=== PATIENT | female | born 1985 | race Caucasian/White ===

== ENCOUNTER 2017-10-28 18:12 | Emergency (ER) | payer SELFPAY, OTHER ==
[2017-10-28 19:18] LABS: BASO % 0.3 % (0.0-1.0); EOS # 1.2 10^3/uL (0.0-0.50); EOS % 7.6 % (0.0-3.0); HEMATOCRIT 35.6 % (36.0-47.0); IMMATURE GRANULOCYTE % 0.3 % (0-3.0); LYMPH # 1.2 10^3/uL (1.5-4.5); LYMPH % 7.8 % (24.0-44.0); MEAN CORPUSCULAR HEMOGLOBIN 29.7 pg (27.0-33.0); MEAN CORPUSCULAR HGB CONC 33.7 g/dl (32.0-36.5); MEAN CORPUSCULAR VOLUME 88.1 fl (80.0-96.0); MONO # 0.9 10^3/uL (0.0-0.8); MONO % 5.8 % (0.0-5.0); NEUTROPHILS # 12.5 10^3/uL (1.8-7.7); NEUTROPHILS % 78.2 % (36.0-66.0); PLATELET COUNT, AUTOMATED 373 10^3/uL (150-450); RED BLOOD COUNT 4.04 10^6/uL (4.00-5.40); RED CELL DISTRIBUTION WIDTH 13.2 % (11.5-14.5)
[2017-10-28] MEDS: ONDANSETRON 4MG/2ML VIAL (J2405) IV (19:21)
[2017-10-28] MEDS: NS 1,000 ML IV (19:21)
[2017-10-28] MEDS: MORPHINE 2 MG/ML 1ML SYRINGE (J2270) IV (19:21)
[2017-10-28 19:39] LABS: ANION GAP 11 MEQ/L (8-16); BLOOD UREA NITROGEN 12 MG/DL (7-18); CALCIUM LEVEL 8.8 MG/DL (8.5-10.1); CARBON DIOXIDE LEVEL 24 MEQ/L (21-32); CHLORIDE LEVEL 100 MEQ/L (98-107); CREATININE FOR GFR 0.85 MG/DL (0.55-1.30); GLOMERULAR FILTRATION RATE > 60.0 (>60); GLUCOSE, FASTING 92 MG/DL (70-100); POTASSIUM SERUM 3.7 MEQ/L (3.5-5.1); SODIUM LEVEL 135 MEQ/L (136-145)
[2017-10-28 19:43] LABS: LACTIC ACID SEPSIS PROTOCOL 0.6 MMOL/L (0.4-2.0)
[2017-10-28 20:10] LABS: ERYTHROCYTE SEDIMENTATION RATE 73 mm/hr (0-20)
[2017-10-28] MEDS: CLINDAMYCIN 600 MG in APPROPRIATE DILUENT 1 EA IV (20:36)
[2017-10-28] MEDS: CLINDAMYCIN 150 MG CAP PO (21:30)
== END 2017-10-28 21:46 | disposition home or self-care (01) ==
LOC: M ED 18:12
DX: L03.116 Cellulitis of left lower limb (principal); F32.9 Major depressive disorder, single episode, unspecified; Z72.0 Tobacco use
CPT/HCPCS: J2405

== ENCOUNTER 2017-10-29 18:24 | Emergency (ER) | payer SELFPAY ==
[2017-10-29] MEDS: KETOROLAC 30 MG/ML VIAL (J1885) IV (18:34)
[2017-10-29] MEDS: CLINDAMYCIN 900 MG in APPROPRIATE DILUENT 1 EA IV (18:34)
[2017-10-29] MEDS: NORCO, ANEXSIA 5/325MG TABLET (HYDROcodone/ACETAMINOPHEN) PO (18:35)
[2017-10-29 18:53] LABS: BASO % 0.3 % (0.0-1.0); EOS # 0.9 10^3/uL (0.0-0.50); EOS % 7.5 % (0.0-3.0); HEMATOCRIT 33.8 % (36.0-47.0); HEMOGLOBIN 11.3 g/dl (12.0-15.5); IMMATURE GRANULOCYTE % 0.3 % (0-3.0); LYMPH # 1.1 10^3/uL (1.5-4.5); MEAN CORPUSCULAR HEMOGLOBIN 30.5 pg (27.0-33.0); MEAN CORPUSCULAR HGB CONC 33.4 g/dl (32.0-36.5); MEAN CORPUSCULAR VOLUME 91.1 fl (80.0-96.0); MONO # 0.6 10^3/uL (0.0-0.8); NEUTROPHILS # 9.3 10^3/uL (1.8-7.7); NEUTROPHILS % 77.9 % (36.0-66.0); PLATELET COUNT, AUTOMATED 339 10^3/uL (150-450); RED BLOOD COUNT 3.71 10^6/uL (4.00-5.40); RED CELL DISTRIBUTION WIDTH 13.2 % (11.5-14.5); WHITE BLOOD COUNT 11.9 10^3/uL (4.0-10.0)
[2017-10-29 19:22] LABS: ERYTHROCYTE SEDIMENTATION RATE 84 mm/hr (0-20)
[2017-10-29 19:25] LABS: ANION GAP 10 MEQ/L (8-16); BLOOD UREA NITROGEN 10 MG/DL (7-18); CALCIUM LEVEL 8.8 MG/DL (8.5-10.1); CARBON DIOXIDE LEVEL 25 MEQ/L (21-32); CHLORIDE LEVEL 103 MEQ/L (98-107); CREATININE FOR GFR 0.89 MG/DL (0.55-1.30); GLOMERULAR FILTRATION RATE > 60.0 (>60); GLUCOSE, FASTING 133 MG/DL (70-100); SODIUM LEVEL 138 MEQ/L (136-145)
== END 2017-10-29 19:53 | disposition home or self-care (01) ==
LOC: M ED 18:24
DX: L03.116 Cellulitis of left lower limb (principal); F32.9 Major depressive disorder, single episode, unspecified; F17.200 Nicotine dependence, unspecified, uncomplicated; Z79.2 Long term (current) use of antibiotics
CPT/HCPCS: J1885

== ENCOUNTER 2018-02-08 16:13 | Emergency (ER) | payer SELFPAY ==
[2018-02-08 16:55] LABS: BASO % 0.5 % (0.0-1.0); EOS # 0.1 10^3/uL (0.0-0.50); EOS % 1.1 % (0.0-3.0); HEMATOCRIT 34.4 % (36.0-47.0); HEMOGLOBIN 11.4 g/dl (12.0-15.5); IMMATURE GRANULOCYTE % 1.4 % (0-3.0); LYMPH # 1.9 10^3/uL (1.5-4.5); LYMPH % 26.2 % (24.0-44.0); MEAN CORPUSCULAR HEMOGLOBIN 29.8 pg (27.0-33.0); MEAN CORPUSCULAR HGB CONC 33.1 g/dl (32.0-36.5); MEAN CORPUSCULAR VOLUME 89.8 fl (80.0-96.0); MONO # 0.4 10^3/uL (0.0-0.8); MONO % 5.3 % (0.0-5.0); NEUTROPHILS # 4.8 10^3/uL (1.8-7.7); NEUTROPHILS % 65.5 % (36.0-66.0); PLATELET COUNT, AUTOMATED 407 10^3/uL (150-450); RED BLOOD COUNT 3.83 10^6/uL (4.00-5.40); RED CELL DISTRIBUTION WIDTH 13.8 % (11.5-14.5); WHITE BLOOD COUNT 7.3 10^3/uL (4.0-10.0)
[2018-02-08 17:04] LABS: CONTROL LINE HCG INT CTR LINE PRESENT; HCG, SERUM QUALITATIVE NEGATIVE (NEGATIVE)
[2018-02-08 17:19] LABS: ACETAMINOPHEN LEVEL < 2.0 UG/ML (10.0-30.0); ALBUMIN 2.9 GM/DL (3.2-5.2); ALBUMIN/GLOBULIN RATIO 0.76 (1.00-1.93); ALKALINE PHOSPHATASE 70 U/L (45-117); ALT/SGPT 43 U/L (12-78); ANION GAP 6 MEQ/L (8-16); AST/SGOT 30 U/L (7-37); BILIRUBIN,DIRECT < 0.1 MG/DL (0.0-0.2); BILIRUBIN,TOTAL 0.3 MG/DL (0.2-1.0); BLOOD UREA NITROGEN 13 MG/DL (7-18); CARBON DIOXIDE LEVEL 29 MEQ/L (21-32); CHLORIDE LEVEL 110 MEQ/L (98-107); CPK CREATINE PHOSPHOKINASE 76 U/L (26-192); CREATININE FOR GFR 0.81 MG/DL (0.55-1.30); ETHYL ALCOHOL (ETHANOL) < 0.003 % (0.000-0.010); GLOMERULAR FILTRATION RATE > 60.0 (>60); GLUCOSE, FASTING 90 MG/DL (70-100); POTASSIUM SERUM 3.5 MEQ/L (3.5-5.1); SALICYLATE LEVEL < 1.7 MG/DL (5.0-30.0); SODIUM LEVEL 145 MEQ/L (136-145); TOTAL PROTEIN 6.7 GM/DL (6.4-8.2)
== END 2018-02-08 20:33 | disposition home or self-care (01) ==
LOC: M ED 16:13
DX: T40.2X1A Poisoning by other opioids, accidental (unintentional), initial encounter (principal); X58.XXXA Exposure to other specified factors, initial encounter; F11.129 Opioid abuse with intoxication, unspecified
CPT/HCPCS: 71045

== ENCOUNTER → 2018-02-10 | Outpatient (CLI) | payer SELFPAY | LOC: M OUTALCOH 07:48 | DX: Z13.9 Encounter for screening, unspecified (principal); F11.20 Opioid dependence, uncomplicated ==

== ENCOUNTER 2018-02-27 15:09 | Emergency (ER) | payer BC, MEDICAID, SELFPAY ==
[~2018-02-27] VITALS: Ht 160 cm; Wt 61.4 kg
[2018-02-27 15:09] VITALS: BP 135/77
[~2018-02-27 15:09] MED LIST: CLEO300C2 PO; KETO10TAB PO; NORCOTAB PO
[2018-02-27] MEDS ORDERED: APAP325T4 PO (15:14)
[2018-02-27] MEDS ORDERED: VALT1TAB PO (15:51)
[2018-02-27] MEDS ORDERED: NAPR-50 PO (15:51)
[2018-02-27] MEDS ORDERED: AUGM875T28 PO (15:59)
[2018-02-27] MEDS ORDERED: valACYclovir HCL 500 MG TAB PO ONE (16:00)
[2018-02-27] MEDS ORDERED: AUGMENTIN 875 MG TAB PO ONE (16:00)
[2018-02-27] MEDS ORDERED: NAPROXEN 250 MG TAB PO ONE (16:15)
== END 2018-02-27 16:20 | disposition home or self-care (01) ==
LOC: M ED 15:09
DX: J03.90 Acute tonsillitis, unspecified (principal); B00.9 Herpesviral infection, unspecified; F33.9 Major depressive disorder, recurrent, unspecified; F17.210 Nicotine dependence, cigarettes, uncomplicated

== ENCOUNTER → 2018-08-05 | Outpatient (REF) | payer MEDICAID ==
[~2018-08-05] MED LIST changes: +APAP325T4 PO; +AUGM875T28 PO; +HYDR-3715 PO; +NAPR-837 PO; -NORCOTAB PO; +VALT1TAB PO
[2018-08-05 18:27] LABS: APPEARANCE, URINE CLEAR (CLEAR); BACTERIA, URINE AUTO 1+ (NEGATIVE); BILIRUBIN, URINE AUTO NEGATIVE (NEGATIVE); BLOOD, URINE BLOOD 1+ (NEGATIVE); COLOR, URINE YELLOW (YELLOW); GLUCOSE, URINE (UA) AUTO NEGATIVE (NEGATIVE); KETONE, URINE AUTO NEGATIVE (NEGATIVE); LEUKOCYTE ESTERASE, URINE AUTO NEGATIVE (NEGATIVE); MUCUS, URINE SMALL (NEGATIVE); NITRITE, URINE AUTO NEGATIVE (NEGATIVE); PROTEIN, URINE AUTO NEGATIVE (NEGATIVE); RBC, URINE AUTO 1 /HPF (0-3); SPECIFIC GRAVITY URINE AUTO 1.021 (1.002-1.035); SQUAMOUS EPITHELIAL CELL UR AU 1 /HPF (0-6); UROBILINOGEN, URINE AUTO 0.2 mg/dL (0.0-2.0); WBC, URINE AUTO 12 /HPF (0-3)
[2018-08-05 19:29] LABS: BASO % 0.6 % (0.0-1.0); EOS # 0.4 10^3/uL (0.0-0.50); EOS % 5.5 % (0.0-3.0); HEMATOCRIT 38.3 % (36.0-47.0); HEMOGLOBIN 12.3 g/dl (12.0-15.5); LYMPH # 2.2 10^3/uL (1.5-4.5); MEAN CORPUSCULAR HEMOGLOBIN 29.1 pg (27.0-33.0); MEAN CORPUSCULAR HGB CONC 32.1 g/dl (32.0-36.5); MEAN CORPUSCULAR VOLUME 90.5 fl (80.0-96.0); MONO # 0.5 10^3/uL (0.0-0.8); MONO % 7.5 % (0.0-5.0); NEUTROPHILS # 3.9 10^3/uL (1.8-7.7); NEUTROPHILS % 55.1 % (36.0-66.0); PLATELET COUNT, AUTOMATED 403 10^3/uL (150-450); RED BLOOD COUNT 4.23 10^6/uL (4.00-5.40)
[2018-08-05 20:16] LABS: ALBUMIN 3.6 GM/DL (3.2-5.2); ALT/SGPT 28 U/L (12-78); BILIRUBIN,TOTAL 0.3 MG/DL (0.2-1.0); BLOOD UREA NITROGEN 14 MG/DL (7-18); CALCIUM LEVEL 8.6 MG/DL (8.5-10.1); CARBON DIOXIDE LEVEL 27 MEQ/L (21-32); CHLORIDE LEVEL 106 MEQ/L (98-107); CHOLESTEROL LEVEL 128 MG/DL (<200); CHOLESTEROL RISK RATIO 3.878 (<5); CREATININE FOR GFR 0.83 MG/DL (0.55-1.30); FREE T4 0.93 NG/DL (0.76-1.46); GLOMERULAR FILTRATION RATE > 60.0 (>60); GLUCOSE, FASTING 96 MG/DL (70-100); HDL CHOLESTEROL 33 MG/DL (>40); LDL CHOLESTEROL 47 MG/DL (<100); NON-HDL-C 95 MG/DL; POTASSIUM SERUM 4.1 MEQ/L (3.5-5.1); SODIUM LEVEL 139 MEQ/L (136-145); TOTAL PROTEIN 7.4 GM/DL (6.4-8.2); TRIGLYCERIDES LEVEL 241 MG/DL (<150)
[2018-08-05 20:20] LABS: TOTAL 25(OH) VITAMIN D 15.7 NG/ML (30.0-100.0)
[2018-08-05 20:44] LABS: HEMOGLOBIN A1c 4.8 %
[2018-08-10 00:06] LABS: Lyme Disease IgG Ab 18 kDa Ban Absent (.); Lyme Disease IgG Ab 23 kDa Ban Absent (.); Lyme Disease IgG Ab 28 kDa Ban Absent (.); Lyme Disease IgG Ab 30 kDa Ban Absent (.); Lyme Disease IgG Ab 39 kDa Ban Absent (.); Lyme Disease IgG Ab 41 kDa Ban Present (.); Lyme Disease IgG Ab 45 kDa Ban Absent (.); Lyme Disease IgG Ab 58 kDa Ban Absent (.); Lyme Disease IgG Ab 66 kDa Ban Absent (.); Lyme Disease IgG Ab 93 kDa Ban Absent (.); Lyme Disease IgG West Blot Int Negative (.); Lyme Disease IgG/IgM Antibodie 1.45 ISR (0.00-0.90); Lyme Disease IgM Ab 23 kDa Ban Present (.); Lyme Disease IgM Ab 39 kDa Ban Present (.); Lyme Disease IgM Ab 41 kDa Ban Absent (.); Lyme Disease IgM Ab Quantitati 1.64 index (0.00-0.79); Lyme Disease IgM West Blot Int Positive (.)
== END ==
LOC: M LAB REF 16:44
PROVIDERS: ATTEND Family Medicine
DX: Z13.228 Encounter for screening for other metabolic disorders (principal)

== ENCOUNTER 2018-10-11 18:11 | Emergency (ER) | payer MEDICAID ==
[~2018-10-11] VITALS: Ht 162.6 cm; Wt 77.3 kg
[2018-10-11] MEDS ORDERED: SUBO8MIS (18:27)
[2018-10-11] MEDS ORDERED: VALA500T5 (18:27)
[2018-10-11] MEDS ORDERED: TRAZ-252 (18:27)
[2018-10-11] MEDS ORDERED: PROAAER10 (18:27)
[2018-10-11] MEDS ORDERED: BUPR150T5 (18:27)
[2018-10-11] MEDS ORDERED: ROBA500T PO (19:56)
[2018-10-11] MEDS ORDERED: LIDOCAINE 5% (LIDODERM) PATCH TD ONE (20:00)
[2018-10-11] MEDS ORDERED: METHOCARBAMOL 750 MG TAB PO ONE (20:00)
[2018-10-11 20:08] VITALS: BP 142/88
[2018-10-12] MEDS ORDERED: **NOTE PATIENT COMMENT** MISC XX SCH (08:00)
== END 2018-10-11 20:09 | disposition home or self-care (01) ==
LOC: M ED 18:11
DX: S39.012A Strain of muscle, fascia and tendon of lower back, initial encounter (principal); X58.XXXA Exposure to other specified factors, initial encounter; Y92.89 Other specified places as the place of occurrence of the external cause; B19.20 Unspecified viral hepatitis C without hepatic coma; Z79.891 Long term (current) use of opiate analgesic

== ENCOUNTER → 2018-10-29 | Outpatient (REF) ==
[~2018-10-29] MED LIST changes: +BUPR150T5; +PROAAER10; +ROBA500T PO; +SUBO8MIS; +TRAZ-252; +VALA500T5
[2018-10-29 11:40] LABS: RUBELLA IgG QUALITATIVE IMMUNE (IMMUNE)
== END ==
LOC: M LAB 10:18
PROVIDERS: ATTEND Nurse Practitioner Adult Health
DX: Z00.00 Encounter for general adult medical examination without abnormal findings (principal)

== ENCOUNTER → 2018-11-08 | Outpatient (REF) | payer MEDICAID ==
[2018-11-10 14:07] LABS: HPV HYBRID CAPTURE II Negative (Negative)
== END ==
LOC: M LAB REF 13:17
PROVIDERS: ATTEND Specialist
DX: Z12.4 Encounter for screening for malignant neoplasm of cervix (principal)

== ENCOUNTER 2018-11-15 08:12 | Emergency (ER) | payer BC, MEDICAID ==
[~2018-11-15] VITALS: Ht 162.6 cm; Wt 91.4 kg
[2018-11-15 08:13] VITALS: BP 117/60
[2018-11-15] MEDS ORDERED: NAPR-837 PO (09:13)
--- NOTE | 2018-11-15 12:03 | REP ---
RIGHT WRIST, FOUR VIEWS: There is no evidence of an acute fracture, dislocation or intrinsic bone disease. A tiny nonspecific soft tissue calcification is seen adjacent to the radial styloid. IMPRESSION: No fracture or dislocation. Electronically Signed by Giovanni Monge MD 11/16/2018 03:38 P
== END 2018-11-15 09:15 | disposition home or self-care (01) ==
LOC: M ED 08:12
DX: G56.01 Carpal tunnel syndrome, right upper limb (principal); F32.9 Major depressive disorder, single episode, unspecified; B19.20 Unspecified viral hepatitis C without hepatic coma; Z72.0 Tobacco use; Z79.899 Other long term (current) drug therapy

== ENCOUNTER → 2020-04-12 | Outpatient (REF) | payer MEDICAID ==
[2020-04-12 17:37] LABS: BASO % 0.4 % (0.0-1.0); EOS # 0.2 10^3/uL (0.0-0.5); HEMATOCRIT 38.8 % (36.0-47.0); HEMOGLOBIN 12.6 g/dl (12.0-15.5); LYMPH % 28.6 % (24.0-44.0); MEAN CORPUSCULAR HEMOGLOBIN 29.6 pg (27.0-33.0); MEAN CORPUSCULAR HGB CONC 32.5 g/dl (32.0-36.5); MEAN CORPUSCULAR VOLUME 91.1 fl (80.0-96.0); MONO # 0.6 10^3/uL (0.0-0.8); MONO % 8.3 % (0.0-5.0); NEUTROPHILS # 4.1 10^3/uL (1.5-8.5); NEUTROPHILS % 59.3 % (36.0-66.0); PLATELET COUNT, AUTOMATED 391 10^3/uL (150-450); RED BLOOD COUNT 4.26 10^6/uL (4.00-5.40)
[2020-04-12 18:04] LABS: ALBUMIN 3.6 GM/DL (3.2-5.2); ALT/SGPT 71 U/L (12-78); BILIRUBIN,TOTAL 0.2 MG/DL (0.2-1.0); BLOOD UREA NITROGEN 15 MG/DL (7-18); CALCIUM LEVEL 8.7 MG/DL (8.5-10.1); CARBON DIOXIDE LEVEL 29 MEQ/L (21-32); CHLORIDE LEVEL 104 MEQ/L (98-107); CREATININE FOR GFR 0.82 MG/DL (0.55-1.30); GLOMERULAR FILTRATION RATE > 60.0 (>60); GLUCOSE, FASTING 90 MG/DL (70-100); IRON (FE) 51 UG/DL (50-170); PERCENT SATURATION 14.3 % (13.2-45.0); POTASSIUM SERUM 4.6 MEQ/L (3.5-5.1); SODIUM LEVEL 138 MEQ/L (136-145); TOTAL 25(OH) VITAMIN D 14.3 NG/ML (30.0-100.0); TOTAL IRON BINDING CAPACITY 357 UG/DL (250-450); TOTAL PROTEIN 7.8 GM/DL (6.4-8.2); VITAMIN B12 LEVEL 700 PG/ML
[2020-04-12 18:20] LABS: APPEARANCE, URINE HAZY (CLEAR); BACTERIA, URINE AUTO NEGATIVE (NEGATIVE); BILIRUBIN, URINE AUTO NEGATIVE (NEGATIVE); BLOOD, URINE BLOOD NEGATIVE (NEGATIVE); COLOR, URINE YELLOW (YELLOW); GLUCOSE, URINE (UA) AUTO NEGATIVE (NEGATIVE); KETONE, URINE AUTO NEGATIVE (NEGATIVE); LEUKOCYTE ESTERASE, URINE AUTO NEGATIVE (NEGATIVE); MUCUS, URINE SMALL (NEGATIVE); NITRITE, URINE AUTO NEGATIVE (NEGATIVE); PROTEIN, URINE AUTO NEGATIVE (NEGATIVE); RBC, URINE AUTO 1 /HPF (0-3); SPECIFIC GRAVITY URINE AUTO 1.026 (1.002-1.035); SQUAMOUS EPITHELIAL CELL UR AU 6 /HPF (0-6); UROBILINOGEN, URINE AUTO 0.2 mg/dL (0.0-2.0); WBC, URINE AUTO 1 /HPF (0-3)
== END ==
LOC: M LAB REF 16:28
PROVIDERS: ATTEND Nurse Practitioner Adult Health
DX: R35.0 Frequency of micturition (principal); R53.83 Other fatigue

== ENCOUNTER → 2020-05-09 | Outpatient (REF) | payer MEDICAID | LOC: M LAB REF 16:16 | PROVIDERS: ATTEND Nurse Practitioner Adult Health | DX: Z20.5 Contact with and (suspected) exposure to viral hepatitis (principal) ==

== ENCOUNTER → 2021-05-20 | Outpatient (CLI) | payer MEDICAID | LOC: M OUTALCOH 10:16 | PROVIDERS: ATTEND Psychiatry & Neurology Psychiatry | DX: Z02.89 Encounter for other administrative examinations (principal) ==

== ENCOUNTER → 2021-05-20 | Outpatient (CLI) | payer MEDICAID | LOC: M PLALAB 12:53 | PROVIDERS: ATTEND Psychiatry & Neurology Psychiatry | DX: F16.10 Hallucinogen abuse, uncomplicated (principal) ==

== ENCOUNTER → 2021-06-24 | Outpatient (CLI) | payer MEDICAID | LOC: M OUTALCOH 13:41 | PROVIDERS: ATTEND Psychiatry & Neurology Psychiatry | DX: F16.10 Hallucinogen abuse, uncomplicated (principal); F17.200 Nicotine dependence, unspecified, uncomplicated ==

== ENCOUNTER 2021-06-26 14:12 | Emergency (ER) | payer MEDICAID, OTHER ==
[~2021-06-26] VITALS: Ht 165.1 cm; Wt 107.6 kg
[2021-06-26] MEDS ORDERED: KETOROLAC TROMETHAMINE 10 MG TAB PO ONE (15:20)
[2021-06-26 16:26] VITALS: BP 134/87
== END 2021-06-26 16:27 | disposition home or self-care (01) ==
LOC: M ED 14:12
DX: S16.1XXA Strain of muscle, fascia and tendon at neck level, initial encounter (principal); S09.90XA Unspecified injury of head, initial encounter; W20.8XXA Other cause of strike by thrown, projected or falling object, initial encounter; Y92.89 Other specified places as the place of occurrence of the external cause; Y93.9 Activity, unspecified; Y99.0 Civilian activity done for income or pay; Z86.19 Personal history of other infectious and parasitic diseases; F41.9 Anxiety disorder, unspecified; F32.9 Major depressive disorder, single episode, unspecified; F17.200 Nicotine dependence, unspecified, uncomplicated; M50.323 Other cervical disc degeneration at C6-C7 level; Z79.899 Other long term (current) drug therapy; Z91.040 Latex allergy status

== ENCOUNTER 2021-07-22 09:00 | Outpatient (RCR) | payer OTHER | END 2021-07-25 | LOC: M OUTALCOH 09:00 | PROVIDERS: ATTEND Psychiatry & Neurology Psychiatry | DX: F16.10 Hallucinogen abuse, uncomplicated (principal); F17.200 Nicotine dependence, unspecified, uncomplicated ==

== ENCOUNTER 2021-08-23 15:00 | Outpatient (RCR) | payer OTHER ==
[~2021-08-23 15:00] MED LIST changes: +BUPR-71; -BUPR150T5
== END 2021-08-24 ==
LOC: M OUTALCOH 15:00
PROVIDERS: ATTEND Psychiatry & Neurology Psychiatry
DX: F16.10 Hallucinogen abuse, uncomplicated (principal); F17.200 Nicotine dependence, unspecified, uncomplicated

== ENCOUNTER → 2021-09-24 | Outpatient (RCR) | payer OTHER | LOC: M OUTALCOH 08-26 08:54 | PROVIDERS: ATTEND Psychiatry & Neurology Psychiatry | DX: F16.10 Hallucinogen abuse, uncomplicated (principal); F17.200 Nicotine dependence, unspecified, uncomplicated ==

== ENCOUNTER 2021-10-16 13:54 | Outpatient (RCR) | payer OTHER | END 2021-10-24 | LOC: M OUTALCOH 13:54 | PROVIDERS: ATTEND Psychiatry & Neurology Psychiatry | DX: F16.10 Hallucinogen abuse, uncomplicated (principal); F17.200 Nicotine dependence, unspecified, uncomplicated ==

== ENCOUNTER 2021-11-06 14:00 | Outpatient (RCR) | payer OTHER | END 2021-11-24 | LOC: M OUTALCOH 14:00 | PROVIDERS: ATTEND Psychiatry & Neurology Psychiatry | DX: F16.10 Hallucinogen abuse, uncomplicated (principal); F17.200 Nicotine dependence, unspecified, uncomplicated ==

== ENCOUNTER 2021-12-08 18:50 | Emergency (ER) | payer OTHER ==
[~2021-12-08] VITALS: Ht 165.1 cm; Wt 72.0 kg
[2021-12-08 18:51] VITALS: BP 140/82
[2021-12-08] MEDS ORDERED: VENL75CA47 (18:57)
[2021-12-08 21:31] LABS: BASO % 0.7 % (0.0-1.0); EOS # 0.2 10^3/uL (0.0-0.5); EOS % 3.7 % (0.0-3.0); HEMATOCRIT 35.6 % (36.0-47.0); HEMOGLOBIN 11.3 g/dl (12.0-15.5); LYMPH # 1.9 10^3/uL (1.5-5.0); LYMPH % 30.6 % (24.0-44.0); MEAN CORPUSCULAR HEMOGLOBIN 28.5 pg (27.0-33.0); MEAN CORPUSCULAR HGB CONC 31.7 g/dl (32.0-36.5); MEAN CORPUSCULAR VOLUME 89.9 fl (80.0-96.0); MONO # 0.5 10^3/uL (0.0-0.8); MONO % 7.3 % (2.0-8.0); NEUTROPHILS # 3.5 10^3/uL (1.5-8.5); NEUTROPHILS % 57.5 % (36.0-66.0); PLATELET COUNT, AUTOMATED 384 10^3/uL (150-450); RED BLOOD COUNT 3.96 10^6/uL (4.00-5.40); WHITE BLOOD COUNT 6.2 10^3/uL (4.0-10.0)
[2021-12-08 22:00] LABS: ERYTHROCYTE SEDIMENTATION RATE 45 mm/hr (0-20)
[2021-12-08 22:07] LABS: BLOOD UREA NITROGEN 9 MG/DL (7-18); C REACTIVE PROTEIN QUANTITATIV 1.26 MG/DL (0.00-0.30); CALCIUM LEVEL 8.8 MG/DL (8.5-10.1); CARBON DIOXIDE LEVEL 27 MEQ/L (21-32); CHLORIDE LEVEL 107 MEQ/L (98-107); CREATININE FOR GFR 0.82 MG/DL (0.55-1.30); GLOMERULAR FILTRATION RATE > 60.0 (>60); GLUCOSE, FASTING 111 MG/DL (70-100); POTASSIUM SERUM 4.4 MEQ/L (3.5-5.1); SODIUM LEVEL 137 MEQ/L (136-145)
[2021-12-08 23:44] LABS: HCG, SERUM QUALITATIVE NEGATIVE (NEGATIVE)
[2021-12-08] MEDS ORDERED: BACT800T5 PO (23:55)
[2021-12-08] MEDS ORDERED: BACTRIM 160MG/800MG DS TAB PO ONE (23:55)
[2021-12-08] MEDS ORDERED: KETO10TAB PO (23:55)
[2021-12-08] MEDS ORDERED: KETOROLAC TROMETHAMINE 10 MG TAB PO ONE (23:55)
== END 2021-12-09 00:39 | disposition home or self-care (01) ==
LOC: M ED 18:50
DX: L03.116 Cellulitis of left lower limb (principal); M32.9 Systemic lupus erythematosus, unspecified; Z91.040 Latex allergy status; Z79.51 Long term (current) use of inhaled steroids; Z79.899 Other long term (current) drug therapy

== ENCOUNTER 2022-04-22 16:12 | Emergency (ER) | payer OTHER ==
[~2022-04-22] VITALS: Ht 165.1 cm; Wt 112.1 kg
[~2022-04-22 16:12] MED LIST changes: +BACT800T5 PO; +VENL75CA47
[2022-04-22 16:13] VITALS: BP 138/91
== END 2022-04-22 18:53 | disposition left against medical advice (07) ==
LOC: M ED 16:12
DX: Z53.21 Procedure and treatment not carried out due to patient leaving prior to being seen by health care provider (principal)

== ENCOUNTER → 2022-05-14 | Outpatient (REF) | payer MEDICAID | LOC: M PLALAB 15:43 | PROVIDERS: ATTEND Obstetrics & Gynecology | DX: Z12.4 Encounter for screening for malignant neoplasm of cervix (principal) ==

== ENCOUNTER → 2022-06-03 | Outpatient (REF) | payer MEDICAID | LOC: M SFHCRHEU 08:57 | PROVIDERS: ATTEND Internal Medicine | DX: Z53.9 Procedure and treatment not carried out, unspecified reason (principal) ==

== ENCOUNTER → 2022-07-07 | Outpatient (CLI) | payer OTHER ==
[2022-07-07 16:31] LABS: ALBUMIN 3.7 G/DL (3.2-5.2); ALKALINE PHOSPHATASE 99 U/L (46-116); ALT/SGPT 197 U/L (7.0-40); AST/SGOT 91 U/L (<34); BILIRUBIN,TOTAL 0.3 MG/DL (0.3-1.2); BLOOD UREA NITROGEN 11 MG/DL (9-23); CALCIUM LEVEL 8.8 MG/DL (8.5-10.1); CARBON DIOXIDE LEVEL 24 MMOL/L (20-31); CHLORIDE LEVEL 104 MMOL/L (98-107); CREATININE FOR GFR 0.69 MG/DL (0.55-1.30); GLOMERULAR FILTRATION RATE > 60.0 (>60); GLUCOSE, FASTING 92 MG/DL (60-100); POTASSIUM SERUM 4.4 MMOL/L (3.5-5.1); SODIUM LEVEL 134 MMOL/L (136-145); TOTAL PROTEIN 7.4 G/DL (5.7-8.2)
[2022-07-07 16:33] LABS: ESTRADIOL 69.8 PG/ML; LUTEINIZING HORMONE 2.7 mIU/ML
[2022-07-07 16:37] LABS: FOLLICLE STIMULATING HORMONE 1.8 mIU/ML
[2022-07-07 17:05] LABS: HEMOGLOBIN A1c 5.5 % (4.0-6.0)
[2022-07-10 00:07] LABS: TESTOSTERONE FREE (DIRECT) 0.4 pg/mL (0.0-4.2)
== END ==
LOC: M PLALAB 12:27
PROVIDERS: ATTEND Obstetrics & Gynecology
DX: R53.83 Other fatigue (principal)

== ENCOUNTER → 2022-07-07 | Outpatient (CLI) | payer OTHER ==
[2022-07-07 16:44] LABS: IRON (FE) 50 UG/DL (50-170)
[2022-07-07 16:45] LABS: MAGNESIUM LEVEL 1.7 MG/DL (1.8-2.4); PHOSPHORUS LEVEL 4.3 MG/DL (2.5-4.9); VITAMIN B12 LEVEL 627 PG/ML (211-911)
[2022-07-07 16:46] LABS: HEPATITIS B SURFACE ANTIBODY POSITIVE (POSITIVE); TOTAL 25(OH) VITAMIN D 28.3 NG/ML (20.0-100.0)
[2022-07-07 16:59] LABS: HEPATITIS B SURFACE ANTIGEN NEGATIVE (NEGATIVE)
[2022-07-07 17:28] LABS: CPK CREATINE PHOSPHOKINASE 117 U/L (34-145)
== END ==
LOC: M PLALAB 12:31
PROVIDERS: ATTEND Internal Medicine
DX: R70.0 Elevated erythrocyte sedimentation rate (principal)

== ENCOUNTER → 2022-08-22 | Outpatient (CLI) | payer OTHER | LOC: M RAD 10:56 | PROVIDERS: ATTEND Internal Medicine | DX: K76.0 Fatty (change of) liver, not elsewhere classified (principal); R74.8 Abnormal levels of other serum enzymes; N28.1 Cyst of kidney, acquired ==

== ENCOUNTER → 2022-09-09 | Outpatient (REF) | payer OTHER | LOC: M LAB REF 16:40 | PROVIDERS: ATTEND Family Medicine Addiction Medicine | DX: R39.9 Unspecified symptoms and signs involving the genitourinary system (principal) ==

== ENCOUNTER → 2022-10-29 | Outpatient (CLI) | payer OTHER | LOC: M PLAIMG 13:32 | PROVIDERS: ATTEND Internal Medicine | DX: M25.50 Pain in unspecified joint (principal) ==

== ENCOUNTER → 2022-10-31 | Outpatient (CLI) | payer OTHER ==
[2022-10-31 13:55] LABS: BASO % 0.5 % (0.0-1.0); EOS # 0.3 10^3/uL (0.0-0.5); HEMATOCRIT 43.7 % (36.0-47.0); HEMOGLOBIN 14.2 g/dl (12.0-15.5); LYMPH % 23.6 % (24.0-44.0); MEAN CORPUSCULAR HEMOGLOBIN 30.1 pg (27.0-33.0); MEAN CORPUSCULAR HGB CONC 32.5 g/dl (32.0-36.5); MEAN CORPUSCULAR VOLUME 92.8 fl (80.0-96.0); MONO # 0.5 10^3/uL (0.0-0.8); MONO % 5.8 % (2.0-8.0); NEUTROPHILS # 5.6 10^3/uL (1.5-8.5); NEUTROPHILS % 66.9 % (36.0-66.0); PLATELET COUNT, AUTOMATED 482 10^3/uL (150-450); RED BLOOD COUNT 4.71 10^6/uL (4.00-5.40); WHITE BLOOD COUNT 8.3 10^3/uL (4.0-10.0)
[2022-10-31 13:56] LABS: APPEARANCE, URINE CLEAR (CLEAR); BACTERIA, URINE AUTO NEGATIVE (NEGATIVE); BILIRUBIN, URINE AUTO NEGATIVE (NEGATIVE); BLOOD, URINE BLOOD NEGATIVE (NEGATIVE); COLOR, URINE YELLOW (YELLOW); GLUCOSE, URINE (UA) AUTO NEGATIVE (NEGATIVE); KETONE, URINE AUTO NEGATIVE (NEGATIVE); LEUKOCYTE ESTERASE, URINE AUTO NEGATIVE (NEGATIVE); MUCUS, URINE SMALL (NEGATIVE); NITRITE, URINE AUTO NEGATIVE (NEGATIVE); PROTEIN, URINE AUTO NEGATIVE (NEGATIVE); RBC, URINE AUTO 0 /HPF (0-3); SPECIFIC GRAVITY URINE AUTO 1.025 (1.002-1.035); SQUAMOUS EPITHELIAL CELL UR AU 2 /HPF (0-6); UROBILINOGEN, URINE AUTO 0.2 mg/dL (0.0-2.0); WBC, URINE AUTO 1 /HPF (0-3)
[2022-10-31 14:17] LABS: ERYTHROCYTE SEDIMENTATION RATE 38 mm/hr (0-20)
[2022-10-31 14:23] LABS: TOTAL PROTEIN,RANDOM URINE 7.4 MG/DL (0.0-14.0)
[2022-10-31 14:26] LABS: COMPLEMENT C3 132.7 MG/DL (84.0-160.0); COMPLEMENT C4 31.6 MG/DL (12-36); IRON (FE) 39 UG/DL (50-170); RHEUMATOID FACTOR QUANT < 3.5 IU/ML (<14); TOTAL 25(OH) VITAMIN D 27.6 NG/ML (20.0-100.0)
[2022-10-31 14:27] LABS: ALBUMIN 4.1 G/DL (3.2-5.2); ALKALINE PHOSPHATASE 75 U/L (46-116); ALT/SGPT 20 U/L (7.0-40); AST/SGOT < 8 U/L (<34); BILIRUBIN,DIRECT 0.1 MG/DL (<0.4); BILIRUBIN,TOTAL 0.4 MG/DL (0.3-1.2); MAGNESIUM LEVEL 1.9 MG/DL (1.8-2.4); TOTAL PROTEIN 7.5 G/DL (5.7-8.2)
[2022-10-31 14:40] LABS: CREATININE,RANDOM URINE 243.9 MG/DL
[2022-11-03 15:08] LABS: CARDIOLIPIN IGA ANTIBODY <9 APL U/mL (0-11); CARDIOLIPIN IGG ANTIBODY 16 GPL U/mL (0-14); CARDIOLIPIN IGM ANTIBODY 15 MPL U/mL (0-12); COMPLEMENT TOTAL (CH50) > 60 U/mL (>41)
== END ==
LOC: M PLALAB 09:55
PROVIDERS: ATTEND Internal Medicine
DX: R76.8 Other specified abnormal immunological findings in serum (principal); E55.9 Vitamin D deficiency, unspecified; M79.10 Myalgia, unspecified site; R79.0 Abnormal level of blood mineral; R74.8 Abnormal levels of other serum enzymes

== ENCOUNTER → 2022-11-27 | Outpatient (CLI) | payer OTHER | LOC: M PLAIMG 13:46 | PROVIDERS: ATTEND Internal Medicine | DX: M79.641 Pain in right hand (principal) ==

== ENCOUNTER 2024-08-24 15:43 | Emergency (ER) | payer OTHER, SELFPAY ==
[~2024-08-24] VITALS: Ht 165.1 cm; Wt 106.8 kg
[2024-08-24] MEDS: LIDOCAINE 1% MDV 20ML VIAL SC ONE (16:20)
[2024-08-24 16:25] LABS: BASO % 0.5 % (0.0-1.0); EOS # 0.1 10^3/uL (0.0-0.5); EOS % 1.2 % (0.0-3.0); HEMOGLOBIN 12.4 g/dl (12.0-15.5); LYMPH # 1.7 10^3/uL (1.5-5.0); LYMPH % 19.7 % (24.0-44.0); MEAN CORPUSCULAR HEMOGLOBIN 30.7 pg (27.0-33.0); MEAN CORPUSCULAR HGB CONC 34.4 g/dl (32.0-36.5); MEAN CORPUSCULAR VOLUME 89.1 fl (80.0-96.0); MONO # 0.6 10^3/uL (0.0-0.8); MONO % 6.9 % (2.0-8.0); NEUTROPHILS % 71.3 % (36.0-66.0); PLATELET COUNT, AUTOMATED 412 10^3/uL (150-450); RED BLOOD COUNT 4.04 10^6/uL (4.00-5.40); WHITE BLOOD COUNT 8.4 10^3/uL (4.0-10.0)
[2024-08-24] MEDS: MORPHINE 4 MG/ML 1ML VIAL IV ONE (16:33)
[2024-08-24] MEDS: BOOSTRIX VACCINE (TETANUS/DIPHTH/ACEL. PERTUSSIS) 0.5ML SYR IM.IMMUN ONE (16:39)
[2024-08-24] MEDS: ceFAZolin SOD 2 GM in DEXTROSE 5% (D5W) ADV/MINI-BAG 50 ML IV ONE (16:39)
[2024-08-24 16:51] LABS: BLOOD UREA NITROGEN 16 MG/DL (9-23); CALCIUM LEVEL 8.9 MG/DL (8.5-10.1); CARBON DIOXIDE LEVEL 24 MMOL/L (20-31); CHLORIDE LEVEL 105 MMOL/L (98-107); CREATININE FOR GFR 0.77 MG/DL (0.55-1.30); GLOMERULAR FILTRATION RATE > 90.0 (>60); GLUCOSE, FASTING 116 MG/DL (60-100); POTASSIUM SERUM 3.7 MMOL/L (3.5-5.1); SODIUM LEVEL 140 MMOL/L (136-145)
[2024-08-24] MEDS ORDERED: CEPH500C PO (19:42)
[2024-08-24 20:04] VITALS: BP 126/71; TEMP 97.6; O2SAT 97
== END 2024-08-24 20:04 | disposition left against medical advice (07) ==
LOC: M ED 15:43
DX: S61.211A Laceration without foreign body of left index finger without damage to nail, initial encounter (principal); S66.922A Laceration of unspecified muscle, fascia and tendon at wrist and hand level, left hand, initial encounter; X99.1XXA Assault by knife, initial encounter; F41.9 Anxiety disorder, unspecified; F32.A Depression, unspecified; G43.909 Migraine, unspecified, not intractable, without status migrainosus; F19.10 Other psychoactive substance abuse, uncomplicated; J45.909 Unspecified asthma, uncomplicated; G47.30 Sleep apnea, unspecified; E55.9 Vitamin D deficiency, unspecified; Z91.040 Latex allergy status; Z79.2 Long term (current) use of antibiotics; Z79.899 Other long term (current) drug therapy; Z53.9 Procedure and treatment not carried out, unspecified reason; Y92.009 Unspecified place in unspecified non-institutional (private) residence as the place of occurrence of the external cause; Y93.89 Activity, other specified; Y99.9 Unspecified external cause status
CPT/HCPCS: 12004; 73130; 80048; 85025; 90471; 90715; 93041; 94760; 96365; 96366; 96375; 99285; J0690

== ENCOUNTER → 2024-11-21 | Outpatient (REF) | payer OTHER, SELFPAY ==
[~2024-11-21] MED LIST changes: +CEPH500C PO
[2024-11-21 15:53] LABS: PLATELET COUNT, AUTOMATED 376 10^3/uL (150-450)
[2024-11-21 15:58] LABS: LDH LACTATE DEHYDROGENASE 153 U/L (120-246)
[2024-11-21 15:59] LABS: C REACTIVE PROTEIN QUANTITATIV 0.71 MG/DL (<1.0); RHEUMATOID FACTOR QUANT 5.5 IU/ML (<14)
[2024-11-21 16:00] LABS: ALT/SGPT 24 U/L (7.0-40); AST/SGOT 21 U/L (<34); CALCIUM LEVEL 8.7 MG/DL (8.5-10.1); CARBON DIOXIDE LEVEL 26 MMOL/L (20-31); CHLORIDE LEVEL 105 MMOL/L (98-107); CHOLESTEROL LEVEL 135 MG/DL (<200); CHOLESTEROL RISK RATIO 2.76 (<5); CREATININE FOR GFR 0.74 MG/DL (0.55-1.30); ERYTHROCYTE SEDIMENTATION RATE 25 mm/hr (0-20); GLOMERULAR FILTRATION RATE > 90.0 (>60); LDL CHOLESTEROL 65.5 MG/DL (<100); NON-HDL-C 86.1 MG/DL; PHOSPHORUS LEVEL 3.7 MG/DL (2.5-4.9); POTASSIUM SERUM 4.7 MMOL/L (3.5-5.1); SODIUM LEVEL 140 MMOL/L (136-145); TRIGLYCERIDES LEVEL 103 MG/DL (<150)
[2024-11-21 16:08] LABS: CPK CREATINE PHOSPHOKINASE 95 U/L (34-145)
== END ==
LOC: M LAB REF 14:30
PROVIDERS: ATTEND Family Medicine Addiction Medicine
DX: M25.50 Pain in unspecified joint (principal); Z68.41 Body mass index [BMI] 40.0-44.9, adult; E66.01 Morbid (severe) obesity due to excess calories

== ENCOUNTER → 2024-11-24 | Outpatient (CLI) | payer OTHER | LOC: M SOG 06:46 | PROVIDERS: ATTEND Orthopaedic Surgery | DX: M19.031 Primary osteoarthritis, right wrist (principal); M19.032 Primary osteoarthritis, left wrist; M19.041 Primary osteoarthritis, right hand; M19.042 Primary osteoarthritis, left hand ==

== ENCOUNTER 2025-04-05 06:11 | Day surgery (SDC) | payer OTHER ==
[~2025-04-05] VITALS: Ht 165.1 cm; Wt 111.1 kg
[~2025-04-05 06:11] MED LIST changes: +ALBU8.5H; +BUPR150T12 PO; +KETO-204 PO; +MELO7.5T35 PO; -SUBO8MIS; +SUBO8MIS SL; +VENL37.598 PO
[2025-04-05] MEDS ORDERED: MIDAZOLAM INJ 2 MG/2 ML VIAL As Ordered ONE (06:44)
[2025-04-05] MEDS ORDERED: ONDANSETRON 4MG/2ML VIAL As Ordered ONE (06:48)
[2025-04-05] MEDS ORDERED: dexAMETHasone 4 MG/ML 1 ML VIAL As Ordered ONE (06:48)
[2025-04-05] MEDS ORDERED: ACETAMINOPHEN 1000MG/100ML IV BAG As Ordered ONE (06:48)
[2025-04-05] MEDS ORDERED: SUGAMMADEX SODIUM 500 MG/5 ML VIAL As Ordered ONE (06:48)
[2025-04-05] MEDS ORDERED: ROCURONIUM BROMIDE 50MG/5ML VIAL As Ordered ONE (06:48)
[2025-04-05] MEDS ORDERED: KETOROLAC 30 MG/ML 1 ML VIAL As Ordered ONE (06:48)
[2025-04-05] MEDS ORDERED: LIDOCAINE 2% 100 MG/5 ML SDV (FOR ANES.) As Ordered ONE (06:48)
[2025-04-05] MEDS: ceFAZolin SOD 2 GM IV ONCE IV ONE (07:40)
[2025-04-05] MEDS ORDERED: LR 1,000 ML IV SCH ×2 (07:50→08:55)
[2025-04-05] MEDS ORDERED: KETAMINE HCL 200 MG/20 ML VIAL As Ordered ONE (08:01)
[2025-04-05] MEDS ORDERED: GLYCOPYRROLATE INJ 0.2 MG/ML 2 ML VIAL As Ordered ONE (08:14)
[2025-04-05] MEDS ORDERED: ONDANSETRON 4MG/2ML VIAL IV PRN (08:55)
[2025-04-05] MEDS ORDERED: HYDROMORPHONE HCL 0.5 MG/0.5 ML SYRINGE IV PRN (08:55)
[2025-04-05 10:55] VITALS: BP 138/82; TEMP 97.2; O2SAT 97
[2025-04-05] MEDS ORDERED: PERC5TAB12 PO ×2 (11:30→11:36)
== END 2025-04-05 11:35 | disposition home or self-care (01) ==
LOC: M SDC 06:11
PROVIDERS: ATTEND Orthopaedic Surgery Hand Surgery
DX: M18.12 Unilateral primary osteoarthritis of first carpometacarpal joint, left hand (principal); M32.9 Systemic lupus erythematosus, unspecified; K76.0 Fatty (change of) liver, not elsewhere classified; F41.9 Anxiety disorder, unspecified; F32.A Depression, unspecified; Z79.899 Other long term (current) drug therapy; F17.210 Nicotine dependence, cigarettes, uncomplicated; Z91.040 Latex allergy status
CPT/HCPCS: 25448; 76000; C1713; J0131; J0665; J0688; J1100; J1596; J1885; J2250; J2405; J3010

== ENCOUNTER → 2025-04-18 | Outpatient (CLI) | payer OTHER ==
[~2025-04-18] MED LIST changes: +PERC5TAB12 PO
== END ==
LOC: M SOG 07:43
PROVIDERS: ATTEND Physician Assistant
DX: M18.12 Unilateral primary osteoarthritis of first carpometacarpal joint, left hand (principal)